=== PATIENT | male | born 1985 | race Caucasian/White ===

== ENCOUNTER 2020-03-11 12:24 | Emergency (ER) | payer OTHER ==
[2020-03-11] MEDS ORDERED: ONDANSETRON 4 MG/2 ML VIAL ONE ×2 (13:13→14:54)
[2020-03-11] MEDS ORDERED: MORPHINE 4 MG/ML SYR ONE (13:13)
[2020-03-11] MEDS ORDERED: NA CHLORIDE 0.9% 1,000 ML ONE (13:14)
[2020-03-11 13:30] LABS: Absolute Lymphocytes (CBC) 0.7 K/uL (0.7-4.9); Basophils % 0.5 % (0-1.3); Hematocrit 43.2 % (39.6-49.0); Lymphocytes % 6.3 % (15.3-44.8); MPV 10.1 fL (7.6-11.3); RBC Red Blood Cell Count 4.79 M/uL (4.33-5.43)
[2020-03-11 13:46] LABS: ALT/SGPT 23 U/L (12-78); AST/SGOT 15 U/L (15-37); Albumin 4.1 g/dL (3.4-5.0); Alkaline Phosphatase 79 U/L (45-117); BUN Blood Urea Nitrogen 14 mg/dL (7-18); Bicarbonate 29 mmol/L (21-32); Bilirubin Direct 0.1 mg/dL (0-0.2); Bilirubin Total 0.5 mg/dL (0.2-1.0); Glucose Level 112 mg/dL (74-106); Lipase 85 U/L (73-393); Potassium 4.5 mmol/L (3.5-5.1); Protein, Total 7.7 g/dL (6.4-8.2); Sodium Level 140 mmol/L (136-145)
--- NOTE | 2020-03-11 14:27 | RAD REPORT ---
EXAM DESCRIPTION: US - Abdomen Exam Limited - 03/11/2020 1:17 pm CLINICAL HISTORY: ABD PAIN COMPARISON: No comparisons FINDINGS: Gallbladder size is normal. No wall thickening or pericholecystic fluid. A 4 centimeter si ze gallstone is present in the midportion of the gallbladder with a 2.5 centimeter stone at the neck. Additional smaller stones are identified. There is a moderate amount of sludge. No common duct stone or biliary tree dilatation identified. IMPRESSION: Multi stone cholelithiasis and sludge without wall thickening or pericholecystic fluid. No duct stone or biliary tree abnormality identified.
--- NOTE | 2020-03-11 14:33 | RAD REPORT ---
EXAM DESCRIPTION: CT - Abdomen Pelvis W Contrast - 03/11/2020 2:09 pm CLINICAL HISTORY: ABD PAIN COMPARISON: No comparisons TECHNIQUE: Biphasic, helical CT imaging of the abdomen and pelvis was performed following 100 ml non -ionic IV contrast. No oral contrast given. All CT scans are performed using dose optimization technique as appropriate and may include automated exposure control or mA/KV adjustment according to patient size. FINDINGS: No suspicious findings in the lung bases. The liver, spleen, and pancreas show no suspicious findings. Multiple gallstones are seen matching th e ultrasound study. No biliary tree abnormal dilatation. Duct stones can be occult. Symmetric renal function is seen with no hydronephrosis or suspicious renal mass. No pyelonephritis o r acute parenchymal process. No bladder abnormalities. No adrenal abnormalities. No dilated bowel loops or bowel wall thickening. Appendix is normal. No free air, free fluid or infla mmatory stranding. No hernia, mass or bulky lymphadenopathy. No suspicious bony findings. IMPRESSION: Multi stone cholelithiasis. No wall thickening or pericholecystic fluid seen. Biliary tr ee within normal limits. Duct stones can be occult. No pancreatitis or other epigastric/right upper quadrant abnormality.
[2020-03-11] MEDS ORDERED: FENTANYL CITR 100 MCG/2 ML ONE (14:54)
--- NOTE | 2020-03-11 15:20 | EDPHYS ---
Physician Documentation [facility] Name: Morris Barbosa Age: 34 yrs Sex: Male : 1985 Arrival Date: 03/11/2020 Time: 12:28 Bed 4 Private MD: ED Physician Juma Espinoza HPI: 03/11 13:37 This 34 yrs old Male presents to ER via Ambulatory with complaints of pm1 Abdominal Pain. 13:37 The patient presents with abdominal pain in the epigastric area, in the right upper pm1 quadrant. Onset: The symptoms/episode began/occurred at 02:00. The symptoms do not radiate. Associated signs and symptoms: Pertinent negatives: nausea, vomiting, and diarrhea, chest pain, constipation, dysuria, fever, shortness of breath. The symptoms are described as sharp, waxing/waning. Modifying factors: The symptoms are alleviated by nothing, the symptoms are aggravated by nothing. Severity of pain: in the emergency department the pain is unchanged. The patient has experienced a previous episode, approximately 1 years ago, and the symptoms today are exactly the same, to prior gallstones. The patient has not recently seen a physician. Historical: - Allergies: 12:38 No Known Allergies; ca1 - Home Meds: 12:38 None [Active]; ca1 - PMHx: 12:38 Cholelithiasis; ca1 - PSHx: 12:38 Knee surgery; Tonsillectomy; ca1 - Immunization history:: Adult Immunizations up to date, Flu vaccine is not up to date. - Social history:: Smoking status: Patient denies any tobacco usage or history of. ROS: 13:37 Constitutional: Negative for fever, chills, and weight loss, Neck: Negative for injury, pm1 pain, and swelling, Cardiovascular: Negative for chest pain, palpitations, and edema, Respiratory: Negative for shortness of breath, cough, wheezing, and pleuritic chest pain. 13:37 Back: Negative for injury and pain, : Negative for injury, bleeding, discharge, and swelling, MS/Extremity: Negative for injury and deformity, Skin: Negative for injury, rash, and discoloration, Neuro: Negative for headache, weakness, numbness, tingling, and seizure. 13:37 Abdomen/GI: Positive for abdominal pain, of the epigastric area and right upper quadrant, Negative for nausea, vomiting, and diarrhea, constipation. Exam: 13:37 Constitutional: This is a well developed, well nourished patient who is awake, alert, pm1 and in no acute distress. Head/Face: Normocephalic, atraumatic. 13:37 Back: No spinal tenderness. No costovertebral tenderness. Full range of motion. Skin: Warm, dry with normal turgor. Normal color with no rashes, no lesions, and no evidence of cellulitis. MS/ Extremity: Pulses equal, no cyanosis. Neurovascular intact. Full, normal range of motion. 13:37 Cardiovascular: Exam negative for acute changes, Rate: normal, Rhythm: Pulses: no pulse deficits are appreciated. 13:37 Respiratory: Exam negative for acute changes, respiratory distress, shortness of breath. 13:37 Abdomen/GI: Inspection: abdomen appears normal, Palpation: soft, in all quadrants, mild abdominal tenderness, in the epigastric area and right upper quadrant. 13:37 Neuro: Exam negative for acute changes, Orientation: is normal, Mentation: is normal, Motor: is normal, moves all fours. Vital Signs: 12:35 BP 140 / 94; Pulse 60; Resp 16 S; Temp 97.7(O); Pulse Ox 100% on R/A; Weight 89.81 kg ca1 (R); Height 5 ft. 11 in. (180.34 cm) (R); Pain 10/10; 13:59 BP 141 / 94; Pulse 53; Resp 16; Temp 97.9(O); Pulse Ox 100% on R/A; mh5 14:49 BP 156 / 101; Pulse 50; Resp 17; Pulse Ox 100% ; rb3 15:48 BP 158 / 94; Pulse 52; Resp 17; Pulse Ox 100% ; rb3 16:40 BP 158 / 94; Pulse 71; Resp 16; Pulse Ox 100% on R/A; rb3 12:35 Body Mass Index 27.62 (89.81 kg, 180.34 cm) ca1 MDM: 12:41 Patient medically screened. pm1 13:46 Data reviewed: vital signs. Data interpreted: Pulse oximetry: on room air is 100 %. pm1 Interpretation: normal. 15:18 Counseling: I had a detailed discussion with the patient and/or guardian regarding: the pm1 historical points, exam findings, and any diagnostic results supporting the discharge/admit diagnosis, lab results, radiology results, the need for outpatient follow up, for definitive care, a general surgeon, to return to the emergency department if symptoms worsen or persist or if there are any questions or concerns that arise at home. 03/11 12:46 Order name: Basic Metabolic Panel; Complete Time: 13:52 pm1 03/11 12:46 Order name: CBC with Diff; Complete Time: 13:52 pm1 03/11 12:46 Order name: Hepatic Function; Complete Time: 13:52 pm1 03/11 12:46 Order name: Lipase; Complete Time: 13:52 pm1 03/11 12:46 Order name: US Abdomen Limited; Complete Time: 14:30 pm1 03/11 12:46 Order name: CT Abd/Pelvis - IV Contrast Only; Complete Time: 14:40 pm1 03/11 12:46 Order name: IV Saline Lock; Complete Time: 13:16 pm1 03/11 12:46 Order name: Labs collected and sent; Complete Time: 13:16 pm1 Administered Medications: 13:13 Drug: NS 0.9% 1000 ml Route: IV; Rate: 1000 ml; Site: right antecubital; rb3 14:22 Follow up: IV Status: Completed infusion rb3 13:13 Drug: morphine 4 mg Route: IVP; Site: right antecubital; rb3 13:40 Follow up: Response: No adverse reaction; Pain is decreased rb3 13:13 Drug: Zofran (Ondansetron) 4 mg Route: IVP; Site: right antecubital; rb3 13:40 Follow up: Response: No adverse reaction rb3 14:47 Drug: fentaNYL (PF) 50 mcg Route: IVP; Site: right antecubital; rb3 15:06 Follow up: Response: No adverse reaction; Pain is decreased rb3 14:48 Drug: Zofran (Ondansetron) 4 mg Route: IVP; Site: right antecubital; rb3 15:06 Follow up: Response: No adverse reaction rb3 16:05 Drug: Bentyl 20 mg Route: IM; Site: right gluteus; rb3 16:57 Follow up: Response: No adverse reaction; Pain is decreased rb3 Disposition: 03/12 06:58 Co-signature as Attending Physician, Juma Espinoza MD. rn Disposition: 03/11/20 15:19 Discharged to Home. Impression: Cholelithiasis. - Condition is Stable. - Discharge Instructions: Cholelithiasis. - Prescriptions for Bentyl 20 mg Oral Tablet - take 1 tablet by ORAL route every 6 hours As needed; 20 tablet. Tylenol- Codeine #3 300-30 mg Oral Tablet - take 2 tablets by ORAL route every 6 hours As needed; 20 tablet. Zofran 4 mg Oral Tablet - take 1 tablet by ORAL route every 12 hours As needed; 20 tablet. - Medication Reconciliation Form, Thank You Letter, Antibiotic Education, Prescription Opioid Use form. - Follow up: Emergency Department; When: As needed; Reason: Worsening of condition. Follow up: Private Physician; When: 2 - 3 days; Reason: Recheck today's complaints, Continuance of care, Re-evaluation by your physician. - Problem is new. - Symptoms have improved. Signatures: Dispatcher [employer] EDMS Juma Espinoza MD MD rn Marinas, Patrick, GLOBAL COMMODITY MANAGER GLOBAL COMMODITY MANAGER pm1 Libra Akers RN RN ca1 Barber, Rebecca, RN RN rb3 Corrections: (The following items were deleted from the chart) 03/11 17:01 15:19 03/11/2020 15:19 Discharged to Home. Impression: Cholelithiasis. Condition is rb3 Stable. Forms are Medication Reconciliation Form, Thank You Letter, Antibiotic Education, Prescription Opioid Use. Follow up: Emergency Department; When: As needed; Reason: Worsening of condition. Follow up: Private Physician; When: 2 - 3 days; Reason: Recheck today's complaints, Continuance of care, Re-evaluation by your physician. Problem is new. Symptoms have improved. pm1
--- NOTE | 2020-03-11 15:20 | ER ---
Nurse's Notes [facility] Name: Morris Barbosa Age: 34 yrs Sex: Male : 1985 Arrival Date: 03/11/2020 Time: 12:28 Bed 4 Private MD: Diagnosis: Cholelithiasis Presentation: 03/11 12:35 Chief complaint: Patient states: RUQ and epigastric pain since 0200 today. Reports ca1 nausea. Denies Vomiting. Reports soft stool x 1 year. Reports HX of gallstones. States, "I feel hot and cold, and like someone is squeezing inside". Denies fever. Coronavirus screen: Client denies travel out of the [place] in the last 14 days. nausea, Client presents with at least one sign or symptom that may indicate coronavirus-19. Standard/surgical mask placed on the client. Provider contacted for isolation considerations. Ebola Screen: Patient negative for fever greater than or equal to 101.5 degrees Fahrenheit, and additional compatible Ebola Virus Disease symptoms Patient denies exposure to infectious person. Patient denies travel to an Ebola-affected area in the 21 days before illness onset. No symptoms or risks identified at this time. Initial Sepsis Screen: Does the patient meet any 2 criteria? No. Patient's initial sepsis screen is negative. Does the patient have a suspected source of infection? No. Patient's initial sepsis screen is negative. Risk Assessment: Do you want to hurt yourself or someone else? Patient reports no desire to harm self or others. Onset of symptoms was March 11, 2020 at 02:00. 12:35 Method Of Arrival: Ambulatory ca1 12:35 Acuity: KARY 3 ca1 Historical: - Allergies: 12:38 No Known Allergies; ca1 - Home Meds: 12:38 None [Active]; ca1 - PMHx: 12:38 Cholelithiasis; ca1 - PSHx: 12:38 Knee surgery; Tonsillectomy; ca1 - Immunization history:: Adult Immunizations up to date, Flu vaccine is not up to date. - Social history:: Smoking status: Patient denies any tobacco usage or history of. Screenin:45 Abuse screen: Denies threats or abuse. Nutritional screening: No deficits noted. rb3 Tuberculosis screening: No symptoms or risk factors identified. Fall Risk None identified. Assessment: 12:45 General: Appears in no apparent distress. comfortable, Behavior is calm, cooperative. rb3 General: Denies fever. Pain: Complains of pain in epigastric area and right upper quadrant Pain currently is 10 out of 10 on a pain scale. Neuro: Level of Consciousness is awake, alert, obeys commands, Oriented to person, place, time, situation. Cardiovascular: Capillary refill < 3 seconds Patient's skin is warm and dry. Respiratory: Airway is patent Respiratory effort is even, unlabored, Respiratory pattern is regular, symmetrical. GI: Bowel sounds present X 4 quads. Abd is soft X 4 quads. : No signs and/or symptoms were reported regarding the genitourinary system. 13:15 Reassessment: US at the bedside. rb3 14:32 Reassessment: Patient appears in no apparent distress at this time. Patient and/or rb3 family updated on plan of care and expected duration. Pain level reassessed. Patient is alert, oriented x 3, equal unlabored respirations, skin warm/dry/pink. 15:50 Reassessment: Pt. does not want to be discharged at this time, he reports that he is rb3 hurting too much to go home. Provider notified of pain and pt. request to speak with him before being discharged. 16:10 Reassessment: Received verbal order from Michel to hold discharge until the pt. had rb3 some relief from the Bentyl shot. 16:59 Reassessment: Patient appears in no apparent distress at this time. Patient and/or rb3 family updated on plan of care and expected duration. Pain level reassessed. Patient is alert, oriented x 3, equal unlabored respirations, skin warm/dry/pink. pain decreased. Vital Signs: 12:35 BP 140 / 94; Pulse 60; Resp 16 S; Temp 97.7(O); Pulse Ox 100% on R/A; Weight 89.81 kg ca1 (R); Height 5 ft. 11 in. (180.34 cm) (R); Pain 10/10; 13:59 BP 141 / 94; Pulse 53; Resp 16; Temp 97.9(O); Pulse Ox 100% on R/A; mh5 14:49 BP 156 / 101; Pulse 50; Resp 17; Pulse Ox 100% ; rb3 15:48 BP 158 / 94; Pulse 52; Resp 17; Pulse Ox 100% ; rb3 16:40 BP 158 / 94; Pulse 71; Resp 16; Pulse Ox 100% on R/A; rb3 12:35 Body Mass Index 27.62 (89.81 kg, 180.34 cm) ca1 ED Course: 12:28 Patient arrived in ED. ag5 12:38 Triage completed. ca1 12:38 Arm band placed on right wrist. ca1 12:41 Vito Pearson NP is PHCP. pm1 12:41 Juma Espinoza MD is Attending Physician. pm1 12:45 Patient has correct armband on for positive identification. Bed in low position. Call rb3 light in reach. Side rails up X 1. Pulse ox on. NIBP on. Warm blanket given. 12:53 Ling Goldman, RN is Primary Nurse. rb3 13:13 Inserted saline lock: 20 gauge in right antecubital area, using aseptic technique. rb3 Blood collected. 13:18 US Abdomen Limited In Process Unspecified. EDMS 14:09 CT Abd/Pelvis - IV Contrast Only In Process Unspecified. EDMS 17:00 No provider procedures requiring assistance completed. IV discontinued, intact, rb3 bleeding controlled, No redness/swelling at site. Pressure dressing applied. Administered Medications: 13:13 Drug: NS 0.9% 1000 ml Route: IV; Rate: 1000 ml; Site: right antecubital; rb3 14:22 Follow up: IV Status: Completed infusion rb3 13:13 Drug: morphine 4 mg Route: IVP; Site: right antecubital; rb3 13:40 Follow up: Response: No adverse reaction; Pain is decreased rb3 13:13 Drug: Zofran (Ondansetron) 4 mg Route: IVP; Site: right antecubital; rb3 13:40 Follow up: Response: No adverse reaction rb3 14:47 Drug: fentaNYL (PF) 50 mcg Route: IVP; Site: right antecubital; rb3 15:06 Follow up: Response: No adverse reaction; Pain is decreased rb3 14:48 Drug: Zofran (Ondansetron) 4 mg Route: IVP; Site: right antecubital; rb3 15:06 Follow up: Response: No adverse reaction rb3 16:05 Drug: Bentyl 20 mg Route: IM; Site: right gluteus; rb3 16:57 Follow up: Response: No adverse reaction; Pain is decreased rb3 Outcome: 15:19 Discharge ordered by . pm1 17:00 Discharged to home ambulatory, with friend. rb3 17:00 Condition: stable 17:00 Discharge instructions given to patient, Instructed on discharge instructions, follow up and referral plans. medication usage, Demonstrated understanding of instructions, follow-up care, medications, Prescriptions given X 3. 17:01 Patient left the ED. rb3 Signatures: Dispatcher [employer] EDMS Vito Pearson NP WAREHOUSE SELECTOR pm1 Eulalia Helms [facility] Libra Akers, RN RN ca1 Mariusz Oglesby [facility] Ling Goldman, RN RN rb3
[2020-03-11] MEDS ORDERED: DICYCLOMINE HCL 20 MG/2 ML AMP IM ONE (16:14)
[2020-03-11 18:56] VITALS: O2SAT 100
[2020-03-11 19:01] VITALS: TEMP 97.9
[2020-03-11 19:03] VITALS: BP 158/94
== END 2020-03-11 17:01 | disposition home or self-care (01) ==
LOC: ER 12:24
DX: K80.20 Calculus of gallbladder without cholecystitis without obstruction (principal)
CPT/HCPCS: 96361; 85025; 80048; 36415; 80076; 83690; 74177; 76705; 96375; 96372; 96374; 99284; Q9967; J0500; J3010; J7030; J2405 ×2